=== PATIENT | female | born 1980 | race Caucasian/White ===

== ENCOUNTER 2019-09-28 15:00 | Emergency (ER) | payer BC, SELFPAY ==
[2019-09-28] MEDS ORDERED: Ketorolac Tromethamine 30 MG/ML VIAL ONE (15:39)
== END 2019-09-28 16:04 | disposition home or self-care (01) ==
LOC: ERS 15:00
DX: J11.1 Influenza due to unidentified influenza virus with other respiratory manifestations (principal); E78.5 Hyperlipidemia, unspecified; E78.00 Pure hypercholesterolemia, unspecified; I10 Essential (primary) hypertension; F41.9 Anxiety disorder, unspecified; F32.9 Major depressive disorder, single episode, unspecified; F17.200 Nicotine dependence, unspecified, uncomplicated; Z79.899 Other long term (current) drug therapy
CPT/HCPCS: 87804; 96372; 99284; J1885